=== PATIENT | female | born 1965 | race Hispanic/Latino ===

== ENCOUNTER 2018-08-17 21:38 | Inpatient (IN) | payer OTHER ==
--- NOTE | 2018-08-17 21:51 | CP.PCM.CON ---
History of Present Illness - History of Present Illness History of Present Illness: [employer] Driver: Dr Dias PMD: Luis M Ornelas MD Reason for consult: Critical care Management Chief Complaint: Right Atrial Thrombus and PE The patient was seen and examined in the ICU HPI: The hx is obtained from the patient and after review of the Laboratory, Radiological and medical records. 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 She has hx of HTN and under went a routine ECHO because of long standing HTN. It showed a right atrial Thrombus. CTA of the chest showed PE in the right main Pulmonary Artery extending to the right lower lobe pulmonary artery. No hx of sedentary lifestyle, control use, Surgery nor family hx of Thromboembolic disease. No SOB, Chest pain nor tachycardia. 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 Allergies: Eptifibatide: first used on this admission at [place] Medication: reviewed. Review of Systems - Constitutional Constitutional: absent: Anorexia, Chills, Fever, Lethargy - EENT Eyes: absent: Blurred Vision, Diplopia, Floaters, Requires Corrective Lenses Ears: absent: Decreased Hearing, Ear Discharge, Tinnitus Nose/Mouth/Throat: absent: Epistaxis, Nasal Congestion, Sinus Pain, Sinus Pressure - Cardiovascular Cardiovascular: absent: Chest Pain, Dyspnea, Edema - Respiratory Respiratory: absent: Cough, Dyspnea, Wheezing, Stridor - Gastrointestinal Gastrointestinal: absent: Abdominal Pain, Constipation, Diarrhea, Nausea, Vomiting - Genitourinary Genitourinary: absent: Dysuria, Flank Pain, Urinary Frequency - Musculoskeletal Musculoskeletal: Arthralgias. absent: Back Pain, Muscle Weakness - Integumentary Integumentary: absent: Pruritus, Rash, Skin Ulcer, Sores, Striae, Swelling - Neurological Neurological: absent: Confusion, Dizziness, Numbness, Focal Weakness, Headaches, Weakness - Psychiatric Psychiatric: absent: Anxiety, Depression, Panic Attacks - Endocrine Endocrine: absent: Palpitations, Polydipsia, Polyphagia, Polyuria - Hematologic/Lymphatic Hematologic: absent: Easy Bleeding, Easy Bruising Past Patient History - Past Medical History & Family History Past Medical History?: Yes - Past Social History Smoking Status: Never Smoked Chewing Tobacco Use: No Cigar Use: No Alcohol: Occasional - CARDIAC Hx Hypercholesterolemia: No Hx Hypertension: Yes - PULMONARY Hx Respiratory Disorders: No - NEUROLOGICAL Hx Neurological Disorder: No - HEENT Hx HEENT Problems: No - RENAL Hx Chronic Kidney Disease: No - ENDOCRINE/METABOLIC Hx Endocrine Disorders: No - HEMATOLOGICAL/ONCOLOGICAL Hx Blood Disorders: No Hx AIDS: No Hx Human Immunodeficiency Virus (HIV): No - INTEGUMENTARY Hx Dermatological Problems: No - MUSCULOSKELETAL/RHEUMATOLOGICAL Hx Musculoskeletal Disorders: Yes Hx Falls: No Other/Comment: Right Shoulder Tendonitis - GASTROINTESTINAL Hx Gastrointestinal Disorders: No - GENITOURINARY/GYNECOLOGICAL Hx Genitourinary Disorders: No - PSYCHIATRIC Hx Psychophysiologic Disorder: No Hx Substance Use: No - SURGICAL HISTORY Hx Surgeries: No - ANESTHESIA Hx Anesthesia: No Meds Allergies/Adverse Reactions: Allergies Allergy/AdvReac Type Severity Reaction Status Date / Time eptifibatide Allergy Mild ITCHING Verified 08/17/18 20:20 [From Integrilin] Physical Exam - Constitutional Appears: No Acute Distress - Head Exam Head Exam: ATRAUMATIC, NORMAL INSPECTION, NORMOCEPHALIC - Eye Exam Eye Exam: EOMI, Normal appearance Pupil Exam: NORMAL ACCOMODATION, PERRL - ENT Exam ENT Exam: Mucous Membranes Moist, Normal Exam, Normal External Ear Exam - Neck Exam Neck exam: Positive for: Full Rom, Normal Inspection. Negative for: Lymphadenopathy, Tenderness - Respiratory Exam Respiratory Exam: Clear to Auscultation Bilateral. absent: Rales, Rhonchi, Wheezes, Stridor - Cardiovascular Exam Cardiovascular Exam: REGULAR RHYTHM, RRR, +S1, +S2. absent: Gallop, JVD - GI/Abdominal Exam GI & Abdominal Exam: Normal Bowel Sounds, Soft. absent: Mass, Organomegaly, Tenderness - Rectal Exam Rectal Exam: Deferred - Extremities Exam Extremities exam: Positive for: full ROM, normal inspection. Negative for: calf tenderness, pedal edema - Back Exam Back exam: NORMAL INSPECTION. absent: CVA tenderness (L), CVA tenderness (R) - Neurological Exam Neurological exam: Alert, CN II-XII Intact, Oriented x3, Reflexes Normal - Psychiatric Exam Psychiatric exam: Normal Affect, Normal Mood - Skin Skin Exam: Dry, Intact, Normal Color, Warm Results - Imaging and Cardiology CT scan - chest Status: Report reviewed by me Additional comment: FINDINGS: PULMONARY ARTERIES: Moderate to large pulmonary embolus in the main right pulmonary artery extending into the right lower lobe pulmonary artery. Smaller pulmonary embolus in the right upper lobe main pulmonary artery extending into the right upper lobe segmental artery. These have a somewhat elliptical elongated configuration raising the possibility that these are not necessarily acute; please correlate clinically. AORTA: No acute findings. No thoracic aortic aneurysm. No aortic atherosclerotic calcification or mural plaque present. LUNGS: Unremarkable. No nodule, mass or pulmonary consolidation. PLEURAL SPACES: Unremarkable. No effusion or pneumothorax. HEART: Unremarkable. No cardiomegaly. No significant pericardial effusion. LYMPH NODES: No lymphadenopathy. BONES, CHEST WALL: Unremarkable. No fracture or destructive lesion OTHER FINDINGS: Unremarkable. IMPRESSION: Moderate to large pulmonary embolus in the main right pulmonary artery extending into the right lower lobe pulmonary artery. Smaller pulmonary embolus in the right upper lobe main pulmonary artery extending into the right upper lobe segmental artery. These have a somewhat elliptical elongated configuration raising the possibility that these are not necessarily acute; please correlate clinically. Lower extremity US Status: Report reviewed by me Additional comment: FINDINGS: COMMON FEMORAL VEIN: Right CFV: Unremarkable. Left CFV: Unremarkable. SUPERFICIAL FEMORAL VEIN: Right SFV: Unremarkable. Left SFV: Unremarkable. POPLITEAL VEIN: Right Popliteal: Unremarkable. Left Popliteal: Unremarkable. POSTERIOR TIBIAL VEIN: Right PTV: Unremarkable. Left PTV: Unremarkable. OTHER FINDINGS: None. IMPRESSION: No evidence of deep venous thrombosis. 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 #. Pulmonary Embolism and right Atrial Thrombus - Consult Cardiology Dr Dias - Place on heel trimmer - Lovenox 60mg SubQ q12H to convert to Apixaban prior to discharge - Due for Thrombectomy and Thrombolysis on 08/18/18 #. Essential HTN - Cardizem #. Left Ovarian Cyst - Follow up as Out patient #. Stress Ulcer Prophylaxis with Pepcid #. DVT Prophylaxis: Patient on Lovenox #. Code Status: Full Victoriano Dorado MD - Date & Time Date: 08/17/18 Time: 21:51
[2018-08-18 04:55] LABS: BASO % 0.5 % (0.0-2.0); EOS % 0.1 % (0.0-4.0); HEMOGLOBIN 14.1 g/dL (11.0-16.0); LYMPH # 0.8 K/uL (1.0-4.3); LYMPH % 9.5 % (20.0-40.0); MEAN CORPUSCULAR HGB CONC 32.9 g/dL (33.0-37.0); MEAN PLATELET VOLUME 8.2 fL (7.2-11.7); MONO # 0.4 K/uL (0.0-0.8); NEUT # 6.9 K/uL (1.8-7.0); NEUT % 84.9 % (50.0-75.0); PLATELET COUNT 222 K/uL (130-400); RBC 4.56 Mil/uL (3.80-5.20); RED CELL DISTRIBUTION WIDTH 12.7 % (11.5-14.5); WHITE BLOOD COUNT 8.1 K/uL (4.8-10.8)
[2018-08-18 05:11] LABS: ALB/GLOB RATIO 1.5 (1.0-2.1); ALBUMIN 4.3 g/dL (3.5-5.0); ALT/SGPT 33 U/L (9-52); AST/SGOT 29 U/L (14-36); BLOOD UREA NITROGEN 9 mg/dL (7-17); CALCIUM 9.1 mg/dl (8.6-10.4); GFR NON-AFRICAN AMERICAN > 60
[2018-08-18 07:22] LABS: LYMPHOCYTE 5 % (20-40); MONOCYTE 3 % (0-10); NEUTROPHIL 91 % (50-75); PLATELET ESTIMATE NORMAL (NORMAL); REACTIVE LYMPHOCYTES 1 % (0-0); TOTAL CELLS COUNTED 100
--- NOTE | 2018-08-18 08:09 | CP.PCM.PN ---
Subjective - Date & Time of Evaluation Date of Evaluation: 08/18/18 Time of Evaluation: 08:07 - Subjective Subjective: Abilio Kaiser, PGY-1, Cardiology Progress Note for Dr. Dias Patient seen and evaluated at bedside this morning. Patient was transported last night to [facility] without any issues. Patient today denies any current symptoms including chest pain, shortness of breath, nausea, left arm pain, jaw pain, diaphoresis, or dizziness. Objective - Vital Signs/Intake and Output Vital Signs (last 24 hours): Temp Pulse Resp BP Pulse Ox 98.1 F 08/17/18 22:15 Intake and Output: 08/18/18 08/18/18 06:59 18:59 Intake Total 240 0 Balance 240 0 - Medications Medications: Current Medications Diltiazem HCl (Cardizem Cd) 240 mg PO DAILY NACHO Enoxaparin Sodium (Lovenox) 60 mg SC Q12 NACHO Famotidine (Pepcid) 20 mg PO DAILY NACHO - Labs Labs: 08/18/18 04:51 08/18/18 04:51 PT 11.0 SECONDS (9.7-12.2) 08/18/18 04:51 INR 1.0 08/18/18 04:51 APTT 40 SECONDS (21-34) H 08/18/18 04:51 - Constitutional Appears: Well, Non-toxic, No Acute Distress - Head Exam Head Exam: ATRAUMATIC, NORMAL INSPECTION, NORMOCEPHALIC - Eye Exam Eye Exam: EOMI, PERRL - ENT Exam ENT Exam: Mucous Membranes Moist - Neck Exam Neck Exam: Full ROM - Respiratory Exam Respiratory Exam: Clear to Ausculation Bilateral, NORMAL BREATHING PATTERN - Cardiovascular Exam Cardiovascular Exam: REGULAR RHYTHM, RRR, +S1, +S2, Murmur (harsh murmur at LUSB and splitting of S1 at Left lower sternal border) - GI/Abdominal Exam GI & Abdominal Exam: Soft, Normal Bowel Sounds. absent: Tenderness - Extremities Exam Extremities Exam: Full ROM - Neurological Exam Neurological Exam: Alert, Awake, CN II-XII Intact, Oriented x3 - Skin Skin Exam: Dry, Intact, Normal Color Assessment and Plan - Assessment and Plan (Free Text) Assessment: IVC and right atrium large clot burden Hypertension Plan: IVC and right atrium large clot burden Hypertension Echocardiogram: shows clot burden extending from IVC to right atrial septum Venous duplex: shows no evidence of DVT Follow up heme/onc recommendations for evaluation for hypercoagulability Catheterization procedure showed clean pulmonary trunks, and showed dissolving clots in IVC and RA. Cannot exclude malignancy at this time. Will obtain MRV for further evaluation. Medications: Cardizem for hypertension Therapeutic lovenox
--- NOTE | 2018-08-18 09:14 | CP.CCUPN ---
<Cm Diaz - Last Filed: 08/18/18 17:10> CCU Subjective - Physician Review Subjective (Free Text): ICU Progress Note for Dr. Mcclain 08/18/18 10:15 Pt seen and examined at bedside. Denies any acute complaints, resting comfortably at bedside. No acute events reported overnight as per staff. Denies headache, dizziness, vision changes, chest pain, sob, n/v/d/c, abd pain, urinary complaints, or other symptoms. Pt NPO today for Thrombectomy and Thrombolysis of R atrial thrombus and PE. CCU Objective - Vital Signs / Intake & Output Vital Signs (Last 4 hours): Vital Signs Temp Pulse Resp BP Pulse Ox 08/18/18 08:00 98.2 F 08/18/18 07:20 85 12 139/65 99 Intake and Output (Last 8hrs): Intake & Output 08/17/18 08/18/18 08/18/18 22:59 06:59 14:59 Intake Total 120 120 0 Balance 120 120 0 Weight 128 lb 128 lb 1.6 oz Intake: Oral 120 120 0 Other: # Voids Urine, Voided 0 0 0 - Physical Exam Head: Positive for: Atraumatic, Normocephalic Pupils: Positive for: PERRL Extroacular Muscles: Positive for: EOMI Conjunctiva: Positive for: Normal Mouth: Positive for: Moist Mucous Membranes Neck: Positive for: Normal Range of Motion, Trachea Midline. Negative for: JVD, Lymphadenopathy Respiratory/Chest: Positive for: Clear to Auscultation, Good Air Exchange. Negative for: Respiratory Distress, Accessory Muscle Use, Wheezes, Rales, Rhonchi Cardiovascular: Positive for: Regular Rate and Rhythm, Normal S1, S2. Negative for: Murmurs, Rub, Gallop Abdomen: Positive for: Normal Bowel Sounds. Negative for: Tenderness, Distention, Mass/Organomegaly Upper Extremity: Positive for: Normal Inspection, Normal ROM, NORMAL PULSES, Neurovascularly Intact, Capillary Refill < 2s. Negative for: Cyanosis, Edema Lower Extremity: Positive for: Normal Inspection, NORMAL PULSES, Normal ROM, Neurovascularly Intact, Capillary Refill < 2 s. Negative for: Edema, CALF TENDERNESS Neurological: Positive for: GCS=15, CN II-XII Intact, Speech Normal, Other Skin: Positive for: Warm, Dry Psychiatric: Positive for: Alert, Oriented x 3 - Medications Active Medications: Active Medications Generic Name Dose Route Start Last Admin Trade Name Freq PRN Reason Stop Dose Admin Diltiazem HCl 240 mg 08/18/18 10:00 Cardizem Cd PO DAILY NACHO Enoxaparin Sodium 60 mg 08/18/18 10:00 Lovenox SC Q12 NACHO Famotidine 20 mg 08/18/18 10:00 Pepcid PO DAILY NACHO - Patient Studies Lab Studies: Lab Studies 08/18/18 08/18/18 08/18/18 Range/Units 04:51 04:51 04:51 WBC 8.1 (4.8-10.8) K/uL RBC 4.56 (3.80-5.20) Mil/uL Hgb 14.1 (11.0-16.0) g/dL Hct 42.9 (34.0-47.0) % MCV 94.0 (81.0-99.0) fL MCH 31.0 (27.0-31.0) pg MCHC 32.9 L (33.0-37.0) g/dL RDW 12.7 (11.5-14.5) % Plt Count 222 (130-400) K/uL MPV 8.2 (7.2-11.7) fL Neut % (Auto) 84.9 H (50.0-75.0) % Lymph % (Auto) 9.5 L (20.0-40.0) % [place] % (Auto) 5.0 (0.0-10.0) % Eos % (Auto) 0.1 (0.0-4.0) % Baso % (Auto) 0.5 (0.0-2.0) % Neut # (Auto) 6.9 (1.8-7.0) K/uL Lymph # (Auto) 0.8 L (1.0-4.3) K/uL [place] # (Auto) 0.4 (0.0-0.8) K/uL Eos # (Auto) 0.0 (0.0-0.7) K/uL Baso # (Auto) 0.0 (0.0-0.2) K/uL Neutrophils % (Manual) 91 H (50-75) % Lymphocytes % (Manual) 5 L (20-40) % Reactive Lymphs % 1 H (0-0) % Monocytes % (Manual) 3 (0-10) % Platelet Estimate Normal (NORMAL) RBC Morphology Normal PT 11.0 (9.7-12.2) SECONDS INR 1.0 APTT 40 H (21-34) SECONDS Sodium 136 (132-148) mmol/L Potassium 4.0 (3.6-5.2) mmol/L Chloride 105 (98-107) mmol/L Carbon Dioxide 26 (22-30) mmol/L Anion Gap 9 L (10-20) BUN 9 (7-17) mg/dL Creatinine 0.5 L (0.7-1.2) mg/dL Est GFR ( Amer) > 60 Est GFR (Non-Af Amer) > 60 Random Glucose 121 H (65-105) mg/dL Calcium 9.1 (8.6-10.4) mg/dl Total Bilirubin 0.5 (0.2-1.3) mg/dL AST 29 (14-36) U/L ALT 33 (9-52) U/L Alkaline Phosphatase 50 (38-126) U/L Total Protein 7.2 (6.3-8.3) g/dL Albumin 4.3 (3.5-5.0) g/dL Globulin 2.9 (2.2-3.9) gm/dL Albumin/Globulin Ratio 1.5 (1.0-2.1) Laboratory Results - last 24 hr 08/18/18 08/18/18 08/18/18 04:51 04:51 04:51 WBC 8.1 RBC 4.56 Hgb 14.1 Hct 42.9 MCV 94.0 MCH 31.0 MCHC 32.9 L RDW 12.7 Plt Count 222 MPV 8.2 Neut % (Auto) 84.9 H Lymph % (Auto) 9.5 L [place] % (Auto) 5.0 Eos % (Auto) 0.1 Baso % (Auto) 0.5 Neut # (Auto) 6.9 Lymph # (Auto) 0.8 L [place] # (Auto) 0.4 Eos # (Auto) 0.0 Baso # (Auto) 0.0 Neutrophils % (Manual) 91 H Lymphocytes % (Manual) 5 L Reactive Lymphs % 1 H Monocytes % (Manual) 3 Platelet Estimate Normal RBC Morphology Normal PT 11.0 INR 1.0 APTT 40 H Sodium 136 Potassium 4.0 Chloride 105 Carbon Dioxide 26 Anion Gap 9 L BUN 9 Creatinine 0.5 L Est GFR ( Amer) > 60 Est GFR (Non-Af Amer) > 60 Random Glucose 121 H Calcium 9.1 Total Bilirubin 0.5 AST 29 ALT 33 Alkaline Phosphatase 50 Total Protein 7.2 Albumin 4.3 Globulin 2.9 Albumin/Globulin Ratio 1.5 Review of Systems - Constitutional Constitutional: absent: Fever, Chills, Sweats - Cardiovascular Cardiovascular: absent: Chest Pain, Diaphoresis, Dyspnea on Exertion, Edema, Palpitations, Syncope - Respiratory Respiratory: absent: Cough, Dyspnea, Dyspnea on Exertion, Wheezing - Gastrointestinal Gastrointestinal: absent: Abdominal Pain, Constipation, Diarrhea, Nausea, Vomiting Critical Care Progress Note - Nutrition Nutrition: Nutrition Category Date Time Status NPO Diet [DIET] Diets 08/18/18 Breakfast Active Assessment/Plan - Assessment and Plan (Free Text) Assessment: 52 y o female PMhx HTN who was admitted to [facility] for incidental findings of RA thrombus during routine echo for HTN, asymptomatic on presentation. CT angio in [facility] ED 08/14/18 demonstrated moderate to large pulmonary embolus in main R pulmonary artery extending into the RLL pulmonary artery extending into RUL segmental artery, somewhat elliptical elongated configuration raising the possibility that these are not necessarily acute. Was transferred from [facility] to [facility] on 08/17/18 for Thrombectomy and Thrombolysis of R atrial thrombus and PE. Pt currently admitted to ICU. Plan: Neuro: -AAOx3, no gross deficits on exam -Cont to monitor Cardiac: -Cardiology (Dr. Dias) consulted, recs appreciated -Pt to have Thrombectomy and Thrombolysis for R atrial thrombus and PE today, NPO for procedure, will monitor in ICU post-procedure -C/w weight-based Lovenox bid, plan to transfer to Xarel[facility] -Hx HTN C/w Diltiazem 240 mg PO daily -CT angio findings at [facility] on 08/14/18 as noted above Pulm: -Admitted for management of PE -Saturating well on room air -Cont to monitor -CT angio findings as noted above GI: -Pepcid daily -No acute issues at this time -NPO for procedure today [employer] -L ovarian cyst found on CT abd/pelvis done at [facility], pt currently asymptomatic -Can f/u as outpatient Heme: -H/H 14.1/42.9, stable -No leukocytosis, afebrile -Hypercoagulable w/u, will discuss case with heme/onc attending at [facility] Dr. Toure Renal: -BUN/Cr 9/0.5 -Trend I's/O's -No acute issues at this time PPX: -DVT: Lovenox, SCDs contraindicated 2/2 suspected DVT -GI: Pepcid Pt seen, examined with, and plan discussed with Dr. Mcclain, attending physician. Cm Diaz DO PGY-1, Mineral Engineer Pager #[phone] <Zack Mcclain - Last Filed: 08/18/18 18:09> CCU Objective - Vital Signs / Intake & Output Vital Signs (Last 4 hours): Vital Signs Temp Pulse Resp BP Pulse Ox 08/18/18 18:00 68 14 97 08/18/18 17:35 74 12 128/67 97 08/18/18 17:05 66 14 127/56 L 97 08/18/18 17:00 66 11 L 127/56 L 97 08/18/18 16:30 70 13 136/65 98 08/18/18 16:15 69 10 L 139/62 97 08/18/18 16:00 97.7 F 75 16 138/63 98 08/18/18 15:45 88 14 154/80 H 100 08/18/18 15:30 97.7 F 69 16 130/59 L 100 08/18/18 15:27 83 98 Intake and Output (Last 8hrs): Intake & Output 08/18/18 08/18/18 08/18/18 06:59 14:59 22:59 Intake Total 120 0 360 Output Total 0 Balance 120 0 360 Weight 128 lb 1.6 oz Intake: Intake, IV Amount 210 Left Forearm 210 Oral 120 0 150 Output: Emesis 0 Other: # Voids Urine, Voided 0 0 0 # Bowel Movements 0 0 - Medications Active Medications: Active Medications Generic Name Dose Route Start Last Admin Trade Name Freq PRN Reason Stop Dose Admin Diltiazem HCl 240 mg 08/18/18 10:00 08/18/18 18:03 Cardizem Cd PO 240 mg DAILY NACHO Administration Enoxaparin Sodium 60 mg 08/18/18 10:00 03/13/19 09:25 Lovenox SC 60 mg Q12 NACHO Administration Famotidine 20 mg 08/18/18 10:00 08/18/18 18:03 Pepcid PO 20 mg DAILY NACHO Administration Sodium Chloride 500 mls @ 70 mls/hr 08/18/18 16:45 08/18/18 16:52 Sodium Chloride 0.9% IV 70 mls/hr .[id number] NACHO Administration - Patient Studies Lab Studies: Lab Studies 08/18/18 08/18/18 08/18/18 Range/Units 10:09 04:51 04:51 WBC (4.8-10.8) K/uL RBC (3.80-5.20) Mil/uL Hgb (11.0-16.0) g/dL Hct (34.0-47.0) % MCV (81.0-99.0) fL MCH (27.0-31.0) pg MCHC (33.0-37.0) g/dL RDW (11.5-14.5) % Plt Count (130-400) K/uL MPV (7.2-11.7) fL Neut % (Auto) (50.0-75.0) % Lymph % (Auto) (20.0-40.0) % [place] % (Auto) (0.0-10.0) % Eos % (Auto) (0.0-4.0) % Baso % (Auto) (0.0-2.0) % Neut # (Auto) (1.8-7.0) K/uL Lymph # (Auto) (1.0-4.3) K/uL [place] # (Auto) (0.0-0.8) K/uL Eos # (Auto) (0.0-0.7) K/uL Baso # (Auto) (0.0-0.2) K/uL Neutrophils % (Manual) (50-75) % Lymphocytes % (Manual) (20-40) % Reactive Lymphs % (0-0) % Monocytes % (Manual) (0-10) % Platelet Estimate (NORMAL) RBC Morphology PT 11.0 (9.7-12.2) SECONDS INR 1.0 APTT 40 H (21-34) SECONDS Sodium 136 (132-148) mmol/L Potassium 4.0 (3.6-5.2) mmol/L Chloride 105 (98-107) mmol/L Carbon Dioxide 26 (22-30) mmol/L Anion Gap 9 L (10-20) BUN 9 (7-17) mg/dL Creatinine 0.5 L (0.7-1.2) mg/dL Est GFR ( Amer) > 60 Est GFR (Non-Af Amer) > 60 Random Glucose 121 H (65-105) mg/dL Calcium 9.1 (8.6-10.4) mg/dl Total Bilirubin 0.5 (0.2-1.3) mg/dL AST 29 (14-36) U/L ALT 33 (9-52) U/L Alkaline Phosphatase 50 (38-126) U/L Total Protein 7.2 (6.3-8.3) g/dL Albumin 4.3 (3.5-5.0) g/dL Globulin 2.9 (2.2-3.9) gm/dL Albumin/Globulin Ratio 1.5 (1.0-2.1) Urine Color Yellow (YELLOW) Urine Clarity Clear (Clear) Urine pH 6.0 (5.0-8.0) Ur Specific [place] 1.015 (1.003-1.030) Urine Protein Negative (NEGATIVE) mg/dL Urine Glucose (UA) Normal (Normal) mg/dL Urine Ketones 1+ H (NEGATIVE) mg/dL Urine Blood Negative (NEGATIVE) Urine Nitrate Negative (NEGATIVE) Urine Bilirubin Negative (NEGATIVE) Urine Urobilinogen Normal (0.2-1.0) mg/dL Ur Leukocyte Esterase Neg (Negative) [place]/uL Urine WBC (Auto) 1 (0-5) /hpf Urine RBC (Auto) < 1 (0-3) /hpf Ur Squamous Epith Cells 2 (0-5) /hpf Urine HCG, Qual Negative (NEGATIVE) 08/18/18 Range/Units 04:51 WBC 8.1 (4.8-10.8) K/uL RBC 4.56 (3.80-5.20) Mil/uL Hgb 14.1 (11.0-16.0) g/dL Hct 42.9 (34.0-47.0) % MCV 94.0 (81.0-99.0) fL MCH 31.0 (27.0-31.0) pg MCHC 32.9 L (33.0-37.0) g/dL RDW 12.7 (11.5-14.5) % Plt Count 222 (130-400) K/uL MPV 8.2 (7.2-11.7) fL Neut % (Auto) 84.9 H (50.0-75.0) % Lymph % (Auto) 9.5 L (20.0-40.0) % [place] % (Auto) 5.0 (0.0-10.0) % Eos % (Auto) 0.1 (0.0-4.0) % Baso % (Auto) 0.5 (0.0-2.0) % Neut # (Auto) 6.9 (1.8-7.0) K/uL Lymph # (Auto) 0.8 L (1.0-4.3) K/uL [place] # (Auto) 0.4 (0.0-0.8) K/uL Eos # (Auto) 0.0 (0.0-0.7) K/uL Baso # (Auto) 0.0 (0.0-0.2) K/uL Neutrophils % (Manual) 91 H (50-75) % Lymphocytes % (Manual) 5 L (20-40) % Reactive Lymphs % 1 H (0-0) % Monocytes % (Manual) 3 (0-10) % Platelet Estimate Normal (NORMAL) RBC Morphology Normal PT (9.7-12.2) SECONDS INR APTT (21-34) SECONDS Sodium (132-148) mmol/L Potassium (3.6-5.2) mmol/L Chloride (98-107) mmol/L Carbon Dioxide (22-30) mmol/L Anion Gap (10-20) BUN (7-17) mg/dL Creatinine (0.7-1.2) mg/dL Est GFR ( Amer) Est GFR (Non-Af Amer) Random Glucose (65-105) mg/dL Calcium (8.6-10.4) mg/dl Total Bilirubin (0.2-1.3) mg/dL AST (14-36) U/L ALT (9-52) U/L Alkaline Phosphatase (38-126) U/L Total Protein (6.3-8.3) g/dL Albumin (3.5-5.0) g/dL Globulin (2.2-3.9) gm/dL Albumin/Globulin Ratio (1.0-2.1) Urine Color (YELLOW) Urine Clarity (Clear) Urine pH (5.0-8.0) Ur Specific [place] (1.003-1.030) Urine Protein (NEGATIVE) mg/dL Urine Glucose (UA) (Normal) mg/dL Urine Ketones (NEGATIVE) mg/dL Urine Blood (NEGATIVE) Urine Nitrate (NEGATIVE) Urine Bilirubin (NEGATIVE) Urine Urobilinogen (0.2-1.0) mg/dL Ur Leukocyte Esterase (Negative) [place]/uL Urine WBC (Auto) (0-5) /hpf Urine RBC (Auto) (0-3) /hpf Ur Squamous Epith Cells (0-5) /hpf Urine HCG, Qual (NEGATIVE) Laboratory Results - last 24 hr 08/18/18 08/18/18 08/18/18 04:51 04:51 04:51 WBC 8.1 RBC 4.56 Hgb 14.1 Hct 42.9 MCV 94.0 MCH 31.0 MCHC 32.9 L RDW 12.7 Plt Count 222 MPV 8.2 Neut % (Auto) 84.9 H Lymph % (Auto) 9.5 L [place] % (Auto) 5.0 Eos % (Auto) 0.1 Baso % (Auto) 0.5 Neut # (Auto) 6.9 Lymph # (Auto) 0.8 L [place] # (Auto) 0.4 Eos # (Auto) 0.0 Baso # (Auto) 0.0 Neutrophils % (Manual) 91 H Lymphocytes % (Manual) 5 L Reactive Lymphs % 1 H Monocytes % (Manual) 3 Platelet Estimate Normal RBC Morphology Normal PT 11.0 INR 1.0 APTT 40 H Sodium 136 Potassium 4.0 Chloride 105 Carbon Dioxide 26 Anion Gap 9 L BUN 9 Creatinine 0.5 L Est GFR ( Amer) > 60 Est GFR (Non-Af Amer) > 60 Random Glucose 121 H Calcium 9.1 Total Bilirubin 0.5 AST 29 ALT 33 Alkaline Phosphatase 50 Total Protein 7.2 Albumin 4.3 Globulin 2.9 Albumin/Globulin Ratio 1.5 Urine Color Urine Clarity Urine pH Ur Specific [place] Urine Protein Urine Glucose (UA) Urine Ketones Urine Blood Urine Nitrate Urine Bilirubin Urine Urobilinogen Ur Leukocyte Esterase Urine WBC (Auto) Urine RBC (Auto) Ur Squamous Epith Cells Urine HCG, Qual 08/18/18 10:09 WBC RBC Hgb Hct MCV MCH MCHC RDW Plt Count MPV Neut % (Auto) Lymph % (Auto) [place] % (Auto) Eos % (Auto) Baso % (Auto) Neut # (Auto) Lymph # (Auto) [place] # (Auto) Eos # (Auto) Baso # (Auto) Neutrophils % (Manual) Lymphocytes % (Manual) Reactive Lymphs % Monocytes % (Manual) Platelet Estimate RBC Morphology PT INR APTT Sodium Potassium Chloride Carbon Dioxide Anion Gap BUN Creatinine Est GFR ( Amer) Est GFR (Non-Af Amer) Random Glucose Calcium Total Bilirubin AST ALT Alkaline Phosphatase Total Protein Albumin Globulin Albumin/Globulin Ratio Urine Color Yellow Urine Clarity Clear Urine pH 6.0 Ur Specific [place] 1.015 Urine Protein Negative Urine Glucose (UA) Normal Urine Ketones 1+ H Urine Blood Negative Urine Nitrate Negative Urine Bilirubin Negative Urine Urobilinogen Normal Ur Leukocyte Esterase Neg Urine WBC (Auto) 1 Urine RBC (Auto) < 1 Ur Squamous Epith Cells 2 Urine HCG, Qual Negative Critical Care Progress Note - Nutrition Nutrition: Nutrition Category Date Time Status Heart Healthy Diet [DIET] Diets 08/18/18 Dinner Active Attending/Attestation - Attestation I have personally seen and examined this patient.: Yes I have fully participated in the care of the patient.: Yes I have reviewed all pertinent clinical information: Yes Notes (Text): 08/18/18 18:09 Today: Saturday, August 18, 2018 The Patient was seen and examined at the bedside, Medical records reviewed, and management issues were discussed and formulated with the house staff. I have reviewed all the relevant clinical, laboratory, hemodynamic, radiographic data and medications Events reviewed Pain issues, skin care, head of the bed elevation, glycemic control were addressed. Agree with above resident's assessment and treatment plans of care as transcribed in Dr. Diaz's note.
[2018-08-18] MEDS: Enoxaparin 60 mg Syringe SC SCH ×2 (09:25→22:00)
[2018-08-18 10:28] LABS: HCG,QUALITATIVE URINE NEGATIVE (NEGATIVE)
[2018-08-18 10:36] LABS: SQUAMOUS EPITHIAL 2 /hpf (0-5); URINE BILIRUBIN NEGATIVE (NEGATIVE); URINE BLOOD NEGATIVE (NEGATIVE); URINE CLARITY Clear (Clear); URINE COLOR Yellow (YELLOW); URINE GLUCOSE (UA) NORMAL (Normal); URINE LEUKOCYTE ESTERASE NEG Leu/uL (Negative); URINE PROTEIN NEGATIVE (NEGATIVE); URINE UROBILINOGEN NORMAL mg/dL (0.2-1.0)
[2018-08-18] MEDS ORDERED: Iodixanol 320 MG/ML 200 ML BOTTLE IV ONE (14:19)
[2018-08-18] MEDS ORDERED: Midazolam 2 MG/2 ML VIAL ONE (14:26)
[2018-08-18] MEDS ORDERED: Lidocaine 2% MPF (5 ml) Inj ONE (14:28)
[2018-08-18] MEDS ORDERED: Iodixanol 320 MG/ML 100 ML BOTTLE IV ONE (14:30)
[2018-08-18] MEDS: Sodium Chloride 0.9% 500 ML IV SCH (16:52)
[2018-08-18] MEDS: diltiaZEM 240 mg/24 Hours CD Cap PO SCH (18:03)
[2018-08-19] MEDS: Sodium Chloride 0.9% 500 ML IV SCH (00:15)
[2018-08-19 06:27] LABS: BASO % 0.5 % (0.0-2.0); EOS # 0.1 K/uL (0.0-0.7); EOS % 0.9 % (0.0-4.0); HEMOGLOBIN 13.2 g/dL (11.0-16.0); LYMPH # 1.9 K/uL (1.0-4.3); LYMPH % 25.6 % (20.0-40.0); MEAN CELL VOLUME 95.6 fL (81.0-99.0); MEAN CORPUSCULAR HEMOGLOBIN 31.4 pg (27.0-31.0); MEAN CORPUSCULAR HGB CONC 32.8 g/dL (33.0-37.0); MEAN PLATELET VOLUME 8.8 fL (7.2-11.7); MONO # 0.7 K/uL (0.0-0.8); NEUT # 4.8 K/uL (1.8-7.0); NRBC % 0.1 % (0.0-2.0); RBC 4.2 Mil/uL (3.80-5.20); WHITE BLOOD COUNT 7.5 K/uL (4.8-10.8)
[2018-08-19 06:55] LABS: ALB/GLOB RATIO 1.6 (1.0-2.1); ALBUMIN 3.8 g/dL (3.5-5.0); ALT/SGPT 60 U/L (9-52); AST/SGOT 60 U/L (14-36); BLOOD UREA NITROGEN 12 mg/dL (7-17); CALCIUM 8.2 mg/dl (8.6-10.4); GFR NON-AFRICAN AMERICAN > 60
--- NOTE | 2018-08-19 08:40 | CP.PCM.PN ---
Subjective - Date & Time of Evaluation Date of Evaluation: 08/19/18 Time of Evaluation: 08:39 - Subjective Subjective: Abilio Kaiser, PGY-1, Cardiology Progress Note for Dr. Dias Patient was seen and evaluated at bedside this morning. Patient had no acute overnight events. Patient reports soreness at site of catheterization but reports no other symptoms including chest pain, shortness of breath, nausea, diaphoresis, dizziness, left arm pain, jaw pain, or heart palpitations. Objective - Vital Signs/Intake and Output Vital Signs (last 24 hours): Temp Pulse Resp BP Pulse Ox 98.6 F 73 14 120/64 98 08/19/18 04:00 08/19/18 07:04 08/19/18 07:04 08/19/18 07:05 08/19/18 07:04 Intake and Output: 08/19/18 08/19/18 06:59 18:59 Intake Total 920 0 Output Total 600 0 Balance 320 0 - Medications Medications: Current Medications Diltiazem HCl (Cardizem Cd) 240 mg PO DAILY [facility] Last Admin: 08/18/18 18:03 Dose: 240 mg Enoxaparin Sodium (Lovenox) 60 mg SC Q12 [facility] Last Admin: 08/18/18 22:00 Dose: 60 mg Famotidine (Pepcid) 20 mg PO DAILY [facility] Last Admin: 08/18/18 18:03 Dose: 20 mg - Labs Labs: 08/19/18 06:19 08/19/18 06:19 PT 11.0 SECONDS (9.7-12.2) 08/18/18 04:51 INR 1.0 08/18/18 04:51 APTT 40 SECONDS (21-34) H 08/18/18 04:51 - Constitutional Appears: Well, Non-toxic, No Acute Distress - Head Exam Head Exam: ATRAUMATIC, NORMAL INSPECTION, NORMOCEPHALIC - Eye Exam Eye Exam: EOMI, PERRL - ENT Exam ENT Exam: Mucous Membranes Moist - Respiratory Exam Respiratory Exam: Clear to Ausculation Bilateral, NORMAL BREATHING PATTERN - Cardiovascular Exam Cardiovascular Exam: REGULAR RHYTHM, RRR, +S1, +S2, Murmur (harsh sounding murmur at LUSB, S1 spitting of LLSB has resolved) - GI/Abdominal Exam GI & Abdominal Exam: Soft, Normal Bowel Sounds. absent: Tenderness - Extremities Exam Extremities Exam: Full ROM, Normal Capillary Refill. absent: Pedal Edema - Neurological Exam Neurological Exam: Alert, Awake, CN II-XII Intact, Oriented x3 - Skin Skin Exam: Dry, Intact, Normal Color Assessment and Plan - Assessment and Plan (Free Text) Assessment: IVC and right atrium large clot burden Hypertension Plan: IVC and right atrium large clot burden Hypertension Echocardiogram: shows clot burden extending from IVC to right atrial septum Venous duplex: shows no evidence of DVT Follow up heme/onc recommendations for evaluation for hypercoagulability Catheterization procedure showed clean pulmonary trunks, and showed dissolving clots in IVC and RA. TPa was not administered and mechanical thrombectomy was not performed due to clots already dissolving. Cannot exclude malignancy at this time. Will obtain CT venogram for further workup of dissolved clots. Medications: Cardizem for hypertension Therapeutic lovenox
--- NOTE | 2018-08-19 09:39 | CP.CCUPN ---
CCU Subjective - Physician Review Subjective (Free Text): ICU Progress Note for Dr. Batista Pt seen and examined at bedside. Denies any acute complaints, resting comfortably at bedside. No acute events reported overnight as per staff. Denies headache, dizziness, vision changes, chest pain, sob, n/v/d/c, abd pain, urinary complaints, or other symptoms. S/p catheterization procedure yesterday. CCU Objective - Vital Signs / Intake & Output Vital Signs (Last 4 hours): Vital Signs Pulse Resp BP Pulse Ox 08/19/18 07:05 120/64 08/19/18 07:04 73 14 98 08/19/18 06:05 64 10 L 127/61 98 Intake and Output (Last 8hrs): Intake & Output 08/18/18 08/19/18 08/19/18 22:59 06:59 14:59 Intake Total 910 640 0 Output Total 0 600 0 Balance 910 40 0 Weight 128 lb 9.6 oz Intake: Intake, IV Amount 560 140 0 Left Forearm 560 140 0 Oral 350 500 Output: Urine 600 0 Urine, Voided 600 0 Emesis 0 Other: # Voids Urine, Voided 0 # Bowel Movements 0 - Physical Exam Head: Positive for: Atraumatic, Normocephalic Pupils: Positive for: PERRL Extroacular Muscles: Positive for: EOMI Conjunctiva: Positive for: Normal Mouth: Positive for: Moist Mucous Membranes Neck: Positive for: Normal Range of Motion, Trachea Midline. Negative for: JVD, Lymphadenopathy Respiratory/Chest: Positive for: Clear to Auscultation, Good Air Exchange. Negative for: Respiratory Distress, Accessory Muscle Use, Wheezes, Rales, Rhonchi Cardiovascular: Positive for: Regular Rate and Rhythm, Normal S1, S2. Negative for: Murmurs, Rub, Gallop Abdomen: Positive for: Normal Bowel Sounds. Negative for: Tenderness, Distention, Mass/Organomegaly Upper Extremity: Positive for: Normal Inspection, Normal ROM, NORMAL PULSES, Neurovascularly Intact, Capillary Refill < 2s. Negative for: Cyanosis, Edema Lower Extremity: Positive for: Normal Inspection, NORMAL PULSES, Normal ROM, Neurovascularly Intact, Capillary Refill < 2 s. Negative for: Edema, CALF TENDERNESS Neurological: Positive for: GCS=15, CN II-XII Intact, Speech Normal, Other Skin: Positive for: Warm, Dry Psychiatric: Positive for: Alert, Oriented x 3 - Medications Active Medications: Active Medications Generic Name Dose Route Start Last Admin Trade Name Simónq PRN Reason Stop Dose Admin Diltiazem HCl 240 mg 08/18/18 10:00 08/18/18 18:03 Cardizem Cd PO 240 mg DAILY NACHO Administration Enoxaparin Sodium 60 mg 08/18/18 10:00 08/18/18 22:00 Lovenox SC 60 mg Q12 NACHO Administration Famotidine 20 mg 08/18/18 10:00 08/18/18 18:03 Pepcid PO 20 mg DAILY NACHO Administration - Patient Studies Lab Studies: Lab Studies 08/19/18 08/19/18 08/18/18 Range/Units 06:19 06:19 10:09 WBC 7.5 (4.8-10.8) K/uL RBC 4.20 (3.80-5.20) Mil/uL Hgb 13.2 (11.0-16.0) g/dL Hct 40.1 (34.0-47.0) % MCV 95.6 (81.0-99.0) fL MCH 31.4 H (27.0-31.0) pg MCHC 32.8 L (33.0-37.0) g/dL RDW 13.0 (11.5-14.5) % Plt Count 223 (130-400) K/uL MPV 8.8 (7.2-11.7) fL Neut % (Auto) 64.0 (50.0-75.0) % Lymph % (Auto) 25.6 (20.0-40.0) % [place] % (Auto) 9.0 (0.0-10.0) % Eos % (Auto) 0.9 (0.0-4.0) % Baso % (Auto) 0.5 (0.0-2.0) % Neut # (Auto) 4.8 (1.8-7.0) K/uL Lymph # (Auto) 1.9 (1.0-4.3) K/uL [place] # (Auto) 0.7 (0.0-0.8) K/uL Eos # (Auto) 0.1 (0.0-0.7) K/uL Baso # (Auto) 0.0 (0.0-0.2) K/uL Sodium 137 (132-148) mmol/L Potassium 3.7 (3.6-5.2) mmol/L Chloride 103 (98-107) mmol/L Carbon Dioxide 28 (22-30) mmol/L Anion Gap 9 L (10-20) BUN 12 (7-17) mg/dL Creatinine 0.5 L (0.7-1.2) mg/dL Est GFR ( Amer) > 60 Est GFR (Non-Af Amer) > 60 Random Glucose 78 D (65-105) mg/dL Calcium 8.2 L (8.6-10.4) mg/dl Phosphorus 3.7 (2.5-4.5) mg/dL Magnesium 2.0 (1.6-2.3) mg/dL Total Bilirubin 0.4 (0.2-1.3) mg/dL AST 60 H D (14-36) U/L ALT 60 H D (9-52) U/L Alkaline Phosphatase 42 (38-126) U/L Total Protein 6.2 L (6.3-8.3) g/dL Albumin 3.8 (3.5-5.0) g/dL Globulin 2.4 (2.2-3.9) gm/dL Albumin/Globulin Ratio 1.6 (1.0-2.1) Urine Color Yellow (YELLOW) Urine Clarity Clear (Clear) Urine pH 6.0 (5.0-8.0) Ur Specific [place] 1.015 (1.003-1.030) Urine Protein Negative (NEGATIVE) mg/dL Urine Glucose (UA) Normal (Normal) mg/dL Urine Ketones 1+ H (NEGATIVE) mg/dL Urine Blood Negative (NEGATIVE) Urine Nitrate Negative (NEGATIVE) Urine Bilirubin Negative (NEGATIVE) Urine Urobilinogen Normal (0.2-1.0) mg/dL Ur Leukocyte Esterase Neg (Negative) Ari[place]/uL Urine WBC (Auto) 1 (0-5) /hpf Urine RBC (Auto) < 1 (0-3) /hpf Ur Squamous Epith Cells 2 (0-5) /hpf Urine HCG, Qual Negative (NEGATIVE) Laboratory Results - last 24 hr 08/18/18 08/19/18 08/19/18 10:09 06:19 06:19 WBC 7.5 RBC 4.20 Hgb 13.2 Hct 40.1 MCV 95.6 MCH 31.4 H MCHC 32.8 L RDW 13.0 Plt Count 223 MPV 8.8 Neut % (Auto) 64.0 Lymph % (Auto) 25.6 [place] % (Auto) 9.0 Eos % (Auto) 0.9 Baso % (Auto) 0.5 Neut # (Auto) 4.8 Lymph # (Auto) 1.9 [place] # (Auto) 0.7 Eos # (Auto) 0.1 Baso # (Auto) 0.0 Sodium 137 Potassium 3.7 Chloride 103 Carbon Dioxide 28 Anion Gap 9 L BUN 12 Creatinine 0.5 L Est GFR ( Amer) > 60 Est GFR (Non-Af Amer) > 60 Random Glucose 78 D Calcium 8.2 L Phosphorus 3.7 Magnesium 2.0 Total Bilirubin 0.4 AST 60 H D ALT 60 H D Alkaline Phosphatase 42 Total Protein 6.2 L Albumin 3.8 Globulin 2.4 Albumin/Globulin Ratio 1.6 Urine Color Yellow Urine Clarity Clear Urine pH 6.0 Ur Specific [place] 1.015 Urine Protein Negative Urine Glucose (UA) Normal Urine Ketones 1+ H Urine Blood Negative Urine Nitrate Negative Urine Bilirubin Negative Urine Urobilinogen Normal Ur Leukocyte Esterase Neg Urine WBC (Auto) 1 Urine RBC (Auto) < 1 Ur Squamous Epith Cells 2 Urine HCG, Qual Negative Review of Systems - Constitutional Constitutional: absent: Fever, Chills, Sweats - EENT Eyes: absent: Change in Vision - Cardiovascular Cardiovascular: absent: Chest Pain, Dyspnea on Exertion, Pain Radiating to Arm/Neck/Jaw, Leg Edema, Palpitations, Syncope - Respiratory Respiratory: absent: Cough, Dyspnea, Wheezing - Gastrointestinal Gastrointestinal: absent: Abdominal Pain, Constipation, Diarrhea, Nausea, Vomiting Critical Care Progress Note - Nutrition Nutrition: Nutrition Category Date Time Status Heart Healthy Diet [DIET] Diets 08/18/18 Dinner Active Assessment/Plan - Assessment and Plan (Free Text) Assessment: 52 y o female PMhx HTN who was admitted to [facility] for incidental findings of RA thrombus during routine echo for HTN, asymptomatic on presentation. CT angio in [facility] ED 08/14/18 demonstrated moderate to large pulmonary embolus in main R pulmonary artery extending into the RLL pulmonary artery extending into RUL segmental artery, somewhat elliptical elongated configuration raising the possibility that these are not necessarily acute. Was transferred from [facility] to [facility] on 08/17/18 for Thrombectomy and Thrombolysis of R atrial thrombus and PE. Procedure on 08/18/18 demonstrated clean pulmonary trunks, and showed dissolving clots in IVC and RA. tPA was not administered and thrombectomy was not performed due to clots already dissolving. Malignancy cannot be exclude d at this time. Pt currently admitted to ICU. CT Venogram ordered as per recs of Dr. Dias for further work-up of dissolved clots. Plan: Neuro: -AAOx3, no gross deficits on exam -Cont to monitor Cardiac: -Cardiology (Dr. Dias) consulted, recs appreciated -S/p Thrombectomy and Thrombolysis for R atrial thrombus and PE procedure on 08/18/18, findings described above -Transitioned to Eliquis 5 mg PO bid as per recs of Dr. Dias, therapeutic Lovenox d/c'd -Hx HTN C/w Diltiazem 240 mg PO daily -CT angio findings at [facility] on 08/14/18 as noted above -Pt to have CT venogram done today as per recs of Dr. 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 Toure at [facility] on prior admission, f/u results Renal: -BUN/Cr 12/0.5 -Trend I's/O's -No acute issues at this time PPX: -DVT: Eliquis, SCDs contraindicated 2/2 suspected DVT -GI: Pepcid Dispo: Stable for downgrade from ICU to telemetry floor at this time. Pt seen, examined with, and plan discussed with Dr. Batista, attending physician. Cm Diaz DO PGY-1, Sealer Operator Pager #[phone]
[2018-08-19] MEDS: Enoxaparin 60 mg Syringe SC SCH (09:55)
[2018-08-19] MEDS: diltiaZEM 240 mg/24 Hours CD Cap PO SCH (09:56)
[2018-08-19] MEDS ORDERED: Iodixanol 320 mg/ml 150 ml Bottle IV ONE (13:17)
--- NOTE | 2018-08-19 13:55 | CP.PCM.HP ---
History of Present Illness - History of Present Illness History of Present Illness: PGY-1 H&P note for Dr Mata hospitalist service Patient is a 52 year old female with past medical history of HTN, right shoulder and knee tendonitis, left ovarian cyst who was sent from her PMD Dr Ornelas to [facility] for echocardiogram remarkable for R atrial thrombus. Admitted at [facility] 08/14, CTA was done, and showed Right main pulmonary artery PE extending to right lower lobe pulm artery. Patient was transferred to [facility] 08/17 for thrombectomy and thrombolysis of r atrial thrombus to be done by Dr Dias. Patient placed on lovenox BID. Patient underwent catheterization procedure on 08/18, which showed dissolving clots in IVC and RA, no mechanical thrombectomy done and no TPA given, clean pulmonary trunks. 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3) Sochx: denies smoking, occasional alcohol use, denies drug use, 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 Present on Admission - Present on Admission Any Indicators Present on Admission: No Review of Systems - Review of Systems All systems: reviewed and no additional remarkable complaints except Review of Systems: as stated in HPI Past Patient History - Past Medical History & Family History Past Medical History?: Yes - Past Social History Smoking Status: Never Smoked Chewing Tobacco Use: No Cigar Use: No Alcohol: Occasional - CARDIAC Hx Hypercholesterolemia: No Hx Hypertension: Yes - PULMONARY Hx Respiratory Disorders: No - NEUROLOGICAL Hx Neurological Disorder: No - HEENT Hx HEENT Problems: No - RENAL Hx Chronic Kidney Disease: No - ENDOCRINE/METABOLIC Hx Endocrine Disorders: No - HEMATOLOGICAL/ONCOLOGICAL Hx Blood Disorders: No Hx AIDS: No Hx Human Immunodeficiency Virus (HIV): No - INTEGUMENTARY Hx Dermatological Problems: No - MUSCULOSKELETAL/RHEUMATOLOGICAL Hx Musculoskeletal Disorders: Yes Hx Falls: No Other/Comment: Right Shoulder Tendonitis - GASTROINTESTINAL Hx Gastrointestinal Disorders: No - GENITOURINARY/GYNECOLOGICAL Hx Genitourinary Disorders: No - PSYCHIATRIC Hx Psychophysiologic Disorder: No Hx Substance Use: No - SURGICAL HISTORY Hx Surgeries: No - ANESTHESIA Hx Anesthesia: No Meds Home Medications: Home Medication List Medication Instructions Recorded Confirmed Type Apixaban [Eliquis] 5 mg PO BID 30 Days #60 tab 08/19/18 Rx diltiaZEM CD [Cardizem CD] 240 mg PO DAILY 30 Days #30 cap 08/19/18 Rx Allergies/Adverse Reactions: Allergies Allergy/AdvReac Type Severity Reaction Status Date / Time eptifibatide Allergy Mild ITCHING Verified 08/17/18 20:20 [From Integrilin] Physical Exam - Constitutional Appears: Non-toxic, No Acute Distress - Head Exam Head Exam: ATRAUMATIC, NORMAL INSPECTION, NORMOCEPHALIC - Eye Exam Eye Exam: EOMI, Normal appearance - ENT Exam ENT Exam: Mucous Membranes Moist - Neck Exam Neck exam: Positive for: Normal Inspection - Respiratory Exam Respiratory Exam: Clear to Auscultation Bilateral, NORMAL BREATHING PATTERN. absent: Rales, Rhonchi, Wheezes - Cardiovascular Exam Cardiovascular Exam: REGULAR RHYTHM, +S1, +S2 - GI/Abdominal Exam GI & Abdominal Exam: Normal Bowel Sounds, Soft. absent: Tenderness - Extremities Exam Extremities exam: Positive for: full ROM, normal inspection. Negative for: tenderness - Back Exam Back exam: FULL ROM, NORMAL INSPECTION - Neurological Exam Neurological exam: Alert, Normal Gait, Oriented x3 - Psychiatric Exam Psychiatric exam: Normal Affect, Normal Mood - Skin Skin Exam: Dry, Intact, Normal Color, Warm Results - Vital Signs Recent Vital Signs: Last Vital Signs Temp 98.3 F 08/19/18 11:45 Pulse 70 08/19/18 12:12 Resp 13 08/19/18 11:34 BP 123/53 L 08/19/18 11:34 Pulse Ox 95 08/19/18 10:05 - Labs Result Diagrams: 08/19/18 06:19 08/19/18 06:19 Labs: Laboratory Results - last 24 hr 08/19/18 08/19/18 06:19 06:19 WBC 7.5 RBC 4.20 Hgb 13.2 Hct 40.1 MCV 95.6 MCH 31.4 H MCHC 32.8 L RDW 13.0 Plt Count 223 MPV 8.8 Neut % (Auto) 64.0 Lymph % (Auto) 25.6 [place] % (Auto) 9.0 Eos % (Auto) 0.9 Baso % (Auto) 0.5 Neut # (Auto) 4.8 Lymph # (Auto) 1.9 [place] # (Auto) 0.7 Eos # (Auto) 0.1 Baso # (Auto) 0.0 Sodium 137 Potassium 3.7 Chloride 103 Carbon Dioxide 28 Anion Gap 9 L BUN 12 Creatinine 0.5 L Est GFR ( Amer) > 60 Est GFR (Non-Af Amer) > 60 Random Glucose 78 D Calcium 8.2 L Phosphorus 3.7 Magnesium 2.0 Total Bilirubin 0.4 AST 60 H D ALT 60 H D Alkaline Phosphatase 42 Total Protein 6.2 L Albumin 3.8 Globulin 2.4 Albumin/Globulin Ratio 1.6 Assessment & Plan - Assessment and Plan (Free Text) Plan: Pulmonary Embolism and right Atrial Thrombus - echo outpatient shows IVC to right atrial septum clot - LE duplex- negative for DVT - CTA at [facility] - moderate to large pulmonary embolus in main R pulmonary artery extending into the RLL pulmonary artery extending into RUL segmental artery, somewhat elliptica - Initially on Lovenox 60mg SubQ q12H - Eliquis 5mg PO BID to start tonight - Cardiology consult Dr Dias - Catheterization procedure showed clean pulmonary trunks, and showed dissolving clots in IVC and RA. TPa was not administered and mechanical thrombectomy was not performed due to clots already dissolving. Cannot exclude malignancy at this time. - patient to get CT venogram for further workup of dissolved clots - will follow up recs - patient can be discharge with elliquis 5 mg PO BID, follow with Dr Dias outpatient Essential HTN - Cardizem 240mg PO daily - normotensive at this time Left Ovarian Cyst CT abd/pelv at [facility] admission, diagnosed in 2016 asymptomatic f/u outpatient [employer] PPX - DVT: eliquis 5 mg PO BID - GI: pepcid 20mg PO daily Plan discussed with Dr Adolfo Colindres, PGY-1 - Date & Time Date: 08/19/18 Time: 13:56
[2018-08-19] MEDS ORDERED: Sodium Chloride 0.9% 250 ML IV ONE ×2 (14:00→14:15)
[2018-08-19 16:29] VITALS: TEMP 98.1
[2018-08-19 17:14] VITALS: BP 113/49
[2018-08-19 18:07] VITALS: PULSE 64; RESP 15; O2SAT 96
--- NOTE | 2018-08-19 18:18 | CP.PCM.DIS ---
Provider - Provider Date of Admission: 08/17/18 21:38 Attending physician: Ramesh Mata Jr, MD Time Spent in preparation of Discharge (in minutes): 180 Diagnosis - Discharge Diagnosis (1) Thrombus in heart chamber Status: Acute (2) HTN (hypertension) Status: Chronic Hospital Course - Lab Results Lab Results: Most Recent Lab Values WBC 7.5 K/uL (4.8-10.8) 08/19/18 06:19 RBC 4.20 Mil/uL (3.80-5.20) 08/19/18 06:19 Hgb 13.2 g/dL (11.0-16.0) 08/19/18 06:19 Hct 40.1 % (34.0-47.0) 08/19/18 06:19 MCV 95.6 fL (81.0-99.0) 08/19/18 06:19 MCH 31.4 pg (27.0-31.0) H 08/19/18 06:19 MCHC 32.8 g/dL (33.0-37.0) L 08/19/18 06:19 RDW 13.0 % (11.5-14.5) 08/19/18 06:19 Plt Count 223 K/uL (130-400) 08/19/18 06:19 MPV 8.8 fL (7.2-11.7) 08/19/18 06:19 Neut % (Auto) 64.0 % (50.0-75.0) 08/19/18 06:19 Lymph % (Auto) 25.6 % (20.0-40.0) 08/19/18 06:19 [place] % (Auto) 9.0 % (0.0-10.0) 08/19/18 06:19 Eos % (Auto) 0.9 % (0.0-4.0) 08/19/18 06:19 Baso % (Auto) 0.5 % (0.0-2.0) 08/19/18 06:19 Neut # (Auto) 4.8 K/uL (1.8-7.0) 08/19/18 06:19 Lymph # (Auto) 1.9 K/uL (1.0-4.3) 08/19/18 06:19 [place] # (Auto) 0.7 K/uL (0.0-0.8) 08/19/18 06:19 Eos # (Auto) 0.1 K/uL (0.0-0.7) 08/19/18 06:19 Baso # (Auto) 0.0 K/uL (0.0-0.2) 08/19/18 06:19 Neutrophils % (Manual) 91 % (50-75) H 08/18/18 04:51 Lymphocytes % (Manual) 5 % (20-40) L 08/18/18 04:51 Reactive Lymphs % 1 % (0-0) H 08/18/18 04:51 Monocytes % (Manual) 3 % (0-10) 08/18/18 04:51 Platelet Estimate Normal (NORMAL) 08/18/18 04:51 RBC Morphology Normal 08/18/18 04:51 PT 11.0 SECONDS (9.7-12.2) 08/18/18 04:51 INR 1.0 08/18/18 04:51 APTT 40 SECONDS (21-34) H 08/18/18 04:51 Sodium 137 mmol/L (132-148) 08/19/18 06:19 Potassium 3.7 mmol/L (3.6-5.2) 08/19/18 06:19 Chloride 103 mmol/L (98-107) 08/19/18 06:19 Carbon Dioxide 28 mmol/L (22-30) 08/19/18 06:19 Anion Gap 9 (10-20) L 08/19/18 06:19 BUN 12 mg/dL (7-17) 08/19/18 06:19 Creatinine 0.5 mg/dL (0.7-1.2) L 08/19/18 06:19 Est GFR ( Amer) > 60 08/19/18 06:19 Est GFR (Non-Af Amer) > 60 08/19/18 06:19 Random Glucose 78 mg/dL (65-105) D 08/19/18 06:19 Calcium 8.2 mg/dl (8.6-10.4) L 08/19/18 06:19 Phosphorus 3.7 mg/dL (2.5-4.5) 08/19/18 06:19 Magnesium 2.0 mg/dL (1.6-2.3) 08/19/18 06:19 Total Bilirubin 0.4 mg/dL (0.2-1.3) 08/19/18 06:19 AST 60 U/L (14-36) H D 08/19/18 06:19 ALT 60 U/L (9-52) H D 08/19/18 06:19 Alkaline Phosphatase 42 U/L (38-126) 08/19/18 06:19 Total Protein 6.2 g/dL (6.3-8.3) L 08/19/18 06: Albumin 3.8 g/dL (3.5-5.0) 08/19/18 06:19 Globulin 2.4 gm/dL (2.2-3.9) 08/19/18 06:19 Albumin/Globulin Ratio 1.6 (1.0-2.1) 08/19/18 06:19 Urine Color Yellow (YELLOW) 08/18/18 10:09 Urine Clarity Clear (Clear) 08/18/18 10:09 Urine pH 6.0 (5.0-8.0) 08/18/18 10:09 Ur Specific [place] 1.015 (1.003-1.030) 08/18/18 10:09 Urine Protein Negative mg/dL (NEGATIVE) 08/18/18 10:09 Urine Glucose (UA) Normal mg/dL (Normal) 08/18/18 10:09 Urine Ketones 1+ mg/dL (NEGATIVE) H 08/18/18 10:09 Urine Blood Negative (NEGATIVE) 08/18/18 10:09 Urine Nitrate Negative (NEGATIVE) 08/18/18 10:09 Urine Bilirubin Negative (NEGATIVE) 08/18/18 10:09 Urine Urobilinogen Normal mg/dL (0.2-1.0) 08/18/18 10:09 Ur Leukocyte Esterase Neg [place]/uL (Negative) 08/18/18 10:09 Urine WBC (Auto) 1 /hpf (0-5) 08/18/18 10:09 Urine RBC (Auto) < 1 /hpf (0-3) 08/18/18 10:09 Ur Squamous Epith Cells 2 /hpf (0-5) 08/18/18 10:09 Urine HCG, Qual Negative (NEGATIVE) 08/18/18 10:09 - Hospital Course Hospital Course: Patient is a 52 year old female with past medical history of HTN, right shoulder and knee tendonitis, left ovarian cyst who was sent from her PMD Dr Ornelas to [facility] for echocardiogram remarkable for R atrial thrombus. Admitted at [facility] 08/14, CTA was done, and showed Right main pulmonary artery PE extending to right lower lobe pulm artery. Patient was transferred to [facility] 08/17 for thrombectomy and thrombolysis of r atrial thrombus to be done by Dr Dias. Patient placed on lovenox BID. Patient underwent catheterization procedure on 08/18, which showed dissolving clots in IVC and RA, no mechanical thrombectomy done and no TPA given, clean pulmonary trunks. Patient has been asymptomatic since admission at [facility], patient denies any fever, chills, chest pain, palpitations, sob, weakness, n/v/d/c, urinary symptoms or leg pain or swelling Patient is stable to discharge as per Dr Mata and Dr Dias. Patient is to follow up with PMD in the next 7-10 days after discharge. Also, Please follow up with Dr Dias in his office, and with OBGYN as well. Patient is to continue taking elliquis 5 mg one table per mouth twice a day. Patient is to start taking cardizem 240mg per mouth one table once a day. Patient instructed to stop taking old dose of cardizem. If patient is symptomatic, It is advice that she returns to the ER immediately This is a summary of patient's hosp course. For more information, please refer to EMR. - Date & Time of H&P Date of H&P: 08/19/18 Time of H&P: 13:46 Discharge Exam - Head Exam Head Exam: ATRAUMATIC, NORMAL INSPECTION, NORMOCEPHALIC - Eye Exam Eye Exam: EOMI, Normal appearance Pupil Exam: NORMAL ACCOMODATION - Neck Exam Neck exam: Normal Inspection - Respiratory Exam Respiratory Exam: Clear to PA & Lateral, NORMAL BREATHING PATTERN, UNREMARKABLE. absent: Rales, Rhonchi, Wheezes - Cardiovascular Exam Cardiovascular Exam: REGULAR RHYTHM, +S1, +S2 - GI/Abdominal Exam GI & Abdominal Exam: Normal Bowel Sounds, Unremarkable - Extremities Exam Extremities exam: full ROM - Back Exam Back exam: NORMAL INSPECTION - Neurological Exam Neurological exam: Alert, Normal Gait, Oriented x3 - Psychiatric Exam Psychiatric exam: Normal Affect, Normal Mood - Skin Skin Exam: Dry, Intact, Normal Color, Warm Discharge Plan - Discharge Medications Prescriptions: Apixaban [Eliquis] 5 mg PO BID 30 Days #60 tab diltiaZEM CD [Cardizem CD] 240 mg PO DAILY 30 Days #30 cap - Follow Up Plan Condition: GOOD Disposition: HOME/ ROUTINE Instructions: Hypertension (DC), Hypertension (GEN) Additional Instructions: Patient is stable to discharge as per Dr Mata and Dr Dias Patient is to follow up with PMD in the next 7-10 days after discharge. Also, Please follow up with Dr Dias in his office, and with OBGYN as well. Patient is to continue taking elliquis 5 mg one table per mouth twice a day Patient is to start taking cardizem 240mg per mouth one table once a day. Patient instructed to stop taking old dose of cardizem. If patient is symptomatic, It is advice that she returns to the ER immediately Referrals: Ashwin Dias MD [Staff Provider] - Luis M Ornelas MD [Family Provider] -
--- NOTE | 2018-08-20 07:37 | CT ---
Date of service: 08/19/2018 PROCEDURE: CT venogram of the lower extremities and abdomen HISTORY: s/p thrombolysis and thrombectomy procedure for PE COMPARISON: No prior similar study available for comparison. TECHNIQUE: CT venogram of the abdomen pelvis and lower extremities was obtained after IV contrast administration. Axial and reformatted coronal and sagittal CT images were obtained. MIP images of venous system were also obtained. Total exam DLP: 1113.77. FINDINGS: The scan through the lower chest demonstrate nonocclusive filling defect in the right main pulmonary artery extending to the right middle and lower lobe pulmonary artery. No evidence of pleural effusion or lung consolidation. Questionable small filling defect noted at the mid to distal inferior vena cava versus mixing artifact. No evidence of large occlusive thrombosis in the IVC and iliac veins. No evidence of occlusive thrombosis in the femoral veins. The visualized portion of the popliteal veins are patent. The assessment of the venous system below the knees is somewhat limited due to limited contrast opacification. There is large heterogeneous enhancing mass lesion in pelvis noted likely represent uterine or ovarian neoplasm. The uterus is also moderately enlarged contains multiple soft tissue mass lesion likely represent fibroids. There is cystic lesion in left aspect of the pelvis measures 3.7 centimeters suspicious for left adnexal cyst. No evidence of free fluid or free air in the abdomen and pelvis. No evidence of suspicious mass in the liver. No evidence of acute cholecystitis. No evidence of high-grade bowel obstruction. IMPRESSION: Nonocclusive filling defect in the main right pulmonary artery extending to the proximal portion of main pulmonary artery of mid and lower lobe. Small nonocclusive filling defect noted at mid portion of the IVC at the level of the kidneys may represent also nonocclusive clot. No evidence of the 5th vein thrombosis in the pelvis and lower extremities up to the level of the knees noted in this exam. Large heterogeneous mass lesion in the pelvis suspicious for uterine or ovarian neoplasm. Further evaluation is recommended.
--- NOTE | 2018-09-14 06:39 | VAS ---
DATE: 08/18/2018 INDICATIONS: Porsche is a 52-year-old female who underwent a routine screening echocardiogram for history of hypertension where she was noted to have thrombi in the right atrium. She was subsequently admitted to the hospital. Clinically, she had minimal symptoms of shortness of breath or dyspnea at rest or with activity. EKG had nonspecific changes. She, therefore, was brought to the central lab technician for evaluation of extent of the thrombus. PROCEDURE PERFORMED: IVC angiogram, right heart catheterization with right heart hemodynamics and saturations, selective bilateral pulmonary angiogram, selective right and left pulmonary angiography. A 7-[place] right femoral venous access, Mynx closure device for hemostasis. ANGIOGRAPHIC FINDINGS: The patient had good flow noted in the IVC with no evidence of thrombi or clot. Selective bilateral left pulmonary angiogram showed good flow into the distal third and fourth generation pulmonary arteries with no evidence of obstruction. The right pulmonary angiography also revealed no evidence of obstructive lesions. IMPRESSION: No obstructive clot or thrombi noted in bilateral pulmonary arterial trunk. Good inferior vena cava flow with no evidence of clot or thrombus in the inferior vena cava. RECOMMENDATIONS: Continue the patient on antiplatelet therapy. Evaluation for ?malignancy. Get a CT abdomen and pelvis and a CT venogram. Ashwin Dias MD
== END 2018-08-19 19:45 | disposition home or self-care (01) | DRG 287 ==
LOC: C.9I 21:38
PROVIDERS: ADMIT Internal Medicine; ATTEND Internal Medicine
PROC: 4A023N6 Measurement of Cardiac Sampling and Pressure, Right Heart, Percutaneous Approach (ICD-10-PCS; principal; 2018-08-18)
PROC: B5191ZZ Fluoroscopy of Inferior Vena Cava using Low Osmolar Contrast (ICD-10-PCS; 2018-08-18)
PROC: B31T1ZZ Fluoroscopy of Left Pulmonary Artery using Low Osmolar Contrast (ICD-10-PCS; 2018-08-18)
PROC: B31S1ZZ Fluoroscopy of Right Pulmonary Artery using Low Osmolar Contrast (ICD-10-PCS; 2018-08-18)
DX: I51.3 Intracardiac thrombosis, not elsewhere classified (principal); I10 Essential (primary) hypertension; M76.51 Patellar tendinitis, right knee; E78.00 Pure hypercholesterolemia, unspecified